=== PATIENT | female | born 1995 ===

== ENCOUNTER 2020-12-09 19:40 | Emergency (ER) | payer OTHER ==
[~2020-12-09] VITALS: Ht 152.4 cm; Wt 66.7 kg
--- NOTE | 2020-12-09 19:52 | NUR ---
EKG DONE. PT SWABBED FOR COVID IN TRIAGE.
[2020-12-09] MEDS ORDERED: ALBUTEROL SULFATE 2.5 MG/3 ML NPPB ONE (20:00)
[2020-12-09] MEDS ORDERED: DEXAMETHASONE 4 MG/ML, 1ML PO ONE (20:00)
--- NOTE | 2020-12-09 22:20 | NUR ---
pt walked back to this room at this time. Олег SALDIVAR at bs for eval and poc. pt reports coming into ed for dry coughing since tuesday. pt covid swabbed in triage. lungs clear on auscultation. nad, placed on spo2/bp monitoring at this time. [place].
[2020-12-09 22:42] VITALS: BP 112/71
--- NOTE | 2020-12-09 23:04 | NUR ---
TASK RN: DC EDUCATION PROVIDED, PT DEMONSTRATES UNDERSTANDING. PT AMBULATED STEADILY TO DC WITH RN.
== END 2020-12-09 23:06 | disposition home or self-care (01) ==
LOC: ED 20:00
DX: J45.901 Unspecified asthma with (acute) exacerbation (principal); Z20.822 Contact with and (suspected) exposure to COVID-19; R06.00 Dyspnea, unspecified; R07.89 Other chest pain; R05 Cough; R94.31 Abnormal electrocardiogram [ECG] [EKG]; J45.909 Unspecified asthma, uncomplicated
CPT/HCPCS: 71045; 93005; 99285; U0003; U0005